=== PATIENT | female | born 2000 | race Caucasian/White ===

== ENCOUNTER 2024-03-04 14:17 | Emergency (ER) | payer OTHER ==
[~2024-03-04] VITALS: Ht 162.6 cm; Wt 124.7 kg
[2024-03-04] MEDS ORDERED: Lidocaine/EPINEPHrine/Tetracaine Topical Gel 3 ML SYRINGE TOP ONE (14:45)
[2024-03-04] MEDS ORDERED: Tdap Vaccine 0.5 ML SYRINGE IM ONE (15:30)
[2024-03-04 15:41] VITALS: BP 129/88
== END 2024-03-04 15:42 | disposition home or self-care (01) ==
LOC: ED 14:17
DX: S01.01XA Laceration without foreign body of scalp, initial encounter (principal); M54.50 Low back pain, unspecified; W22.8XXA Striking against or struck by other objects, initial encounter; Y93.89 Activity, other specified